=== PATIENT | male | born 1960 | race Caucasian/White ===

== ENCOUNTER → 2019-03-25 | Outpatient (CLI) | payer OTHER ==
--- NOTE | 2019-03-25 12:32 | PCVCIMAG ---
APPROVED REPORT Study performed: 03/25/2019 10:41:52 EXAM: Comprehensive 2D, Doppler, and color-flow Echocardiogram Patient Location: Echo lab Status: routine BSA: 2.07 HR: 53 bpmBP: 122/88 mmHg Rhythm: NSR Other Information Study Quality: Adequate Risk Factors: Cardiac Risk Factors: HTN 2D Dimensions IVSd: 14.91 (7-11mm)LVOT Diam: 21.75 (18-24mm) LVDd: 42.33 mm PWd: 9.85 (7-11mm)Ascending Ao: 32.86 (22-36mm) LVDs: 38.00 (25-40mm) Left Atrium: 41.38 (27-40mm) Aortic Root: 33.42 mm LV Single Plane 4CH: 61.95 % LV Single Plane 2CH: 47.04 % Biplane EF: 54.9 % Volumes Left Atrial Volume (Systole) Single Plane 4CH: 43.98 mLSingle Plane 2CH: 45.50 mL LA ESV Index: 22.00 mL/m2 Aortic Valve AoV Peak Lm.: 1.12 m/s AO Peak Gr.: 4.98 mmHgLVOT Max P.89 mmHg LVOT Max V: 0.99 m/s VASQUEZ Vmax: 3.28 cm2 TDI Medial E' Lm.: 0.06 m/s Lateral E' Lm.: 0.06 m/s Pulmonary Valve PV Peak Gr.: 1.84 mmHg Pulmonary Vein P Vein S: 0.38 m/sP Vein A: 0.34 m/s P Vein D: 0.39 m/sP Vein A Dur.: 83.0 msec P Vein S/D Ratio: 0.97 Left Ventricle The left ventricle is normal size. There is normal LV segmental wall motion. There is normal left ventricular wall thickness. Left ventricular systolic function is normal. The left ventricular ejection fraction is within the normal range. LVEF is 55-60%. Mild diastolic dysfunction is present (impaired relaxation pattern). Right Ventricle The right ventricle is normal size. The right ventricular systolic function is normal. Atria The left atrium size is normal. The right atrium size is normal. Aortic Valve The aortic valve is normal in structure. No aortic regurgitation is present. There is no aortic valvular stenosis. Mitral Valve The mitral valve is normal in structure. There is no mitral valve regurgitation noted. No evidence of mitral valve stenosis. Tricuspid Valve The tricuspid valve is normal in structure. There is no tricuspid valve regurgitation noted. Pulmonic Valve The pulmonary valve is normal in structure. There is no pulmonic valvular regurgitation. Great Vessels The aortic root is normal in size. IVC is normal in size and collapses >50% with inspiration. Pericardium There is no pericardial effusion. <Conclusion> Left ventricular systolic function is normal. There is normal LV segmental wall motion. LVEF is 55-60%. Mild diastolic dysfunction The aortic valve is normal in structure. No aortic regurgitation or stenosis. The mitral valve is normal in structure. No mitral valve regurgitation. Pulmonary artery systolic pressure could not be reliably ascertained There is no pericardial effusion.
--- NOTE | 2019-03-25 14:51 | PCVCIMAG ---
EXAM: BILATERAL RENAL ULTRASOUND AND BILATERAL RENAL DUPLEX INDICATION: Hypertension FINDINGS: Right kidney: Length measures 12.8 cm. No hydronephrosis or extensive renal scarring. Right renal duplex: Adequate technical quality. No sonographic evidence of renal artery stenosis. The aortic to renal artery ratio is 1.2. The renal vein is patent. Left kidney: Length measures 12.3 cm. No hydronephrosis or extensive renal scarring. Left renal duplex: Adequate technical quality. No sonographic evidence of renal artery stenosis. The aortic to renal artery ratio is 1.6. The renal vein is patent. Bladder: No obvious abnormalities. IMPRESSION: No significant renal artery stenosis. No hydronephrosis bilaterally. LOC:[id number]
== END | disposition home or self-care (01) ==
LOC: PCVCIMAG 10:38
PROVIDERS: ATTEND Family Medicine
DX: I11.9 Hypertensive heart disease without heart failure (principal)
CPT/HCPCS: 76770; 93306; 93975